=== PATIENT | male | born 1945 | race Caucasian/White ===

== ENCOUNTER → 2023-09-22 13:22 | Outpatient (CLI) | payer MEDICARE, SELFPAY | PROVIDERS: PCP Family Medicine; Visit Provider Specialist | DX: N47.1 Phimosis (principal); N48.1 Balanitis; N40.1 Benign prostatic hyperplasia with lower urinary tract symptoms; N13.8 Other obstructive and reflux uropathy; R39.9 Unspecified symptoms and signs involving the genitourinary system | CPT/HCPCS: 51798; 81002; 87077; 87086; 87147; 87186; 99214 ==

== ENCOUNTER 2023-11-09 07:51 | Day surgery (SDC) | payer MEDICARE, OTHER, SELFPAY ==
[2023-11-05 13:25] VITALS: BMI 34.7
--- NOTE | 2023-11-09 | PATH_ITS ---
[facility] Accession Number: [id number] No. of containers..01 Tissue . 01 Material submitted: . foreskin - FORESKIN . 01 Diagnosis: FORESKIN, BIOPSY: Foreskin with lichenoid inflammation and crusted erosion. [facility] 11/17/2023 1024 Local . 01 Comment: Although there is mild squamous atypia, these changes are favored to be reactive. . The histologic material was reviewed with Dr. Iglesia Patton, who concurs. . 01 Electronically signed: . Maia Erickson MD, Dermatopathologist NPI- [id number] . 01 Gross description: . The specimen is received in formalin, labeled with the patient's name, , and foreskin, and consists of an irregular, calle, wrinkled fragment of skin measuring 8.7 x 3.0 x 0.9 cm. There are several pale crusted areas measuring up to 1.3 cm in greatest dimension occupying approximately 10% of the cutaneous surface. The margin is inked blue, and sectioning reveals a calle, soft, unremarkable cut surface. Behavioral Health Assistant sections to include pale, crusted areas are submitted in cassettes A1-A3. ([id number]) /MRV 11/10/2023 1544 Local . 01 Pathologist provided ICD-10: R23.9 . 01 CPT . 858065 Specimen Comment: A courtesy copy of this report has been sent to [phone] Performed at: [address] [id number] MD Sami Roche MD Phone: [phone]
[2023-11-09] MEDS: LACTATED RINGERS 1,000 ML 21 ML IV ×2 (08:12→10:46)
[2023-11-09] MEDS: ACETAMINOPHEN IV 1,000 MG/100 ML VIAL 400 MG IV (08:29)
[2023-11-09 08:39] VITALS: BP 147/78; PULSE 62; RESP 16; TEMP 36.2; O2SAT 95; BMI 34.7
--- NOTE | 2023-11-09 09:18 | PM.PREOP ---
Pre-operative Note COVID-19 COVID-19 status: Not tested Interval Note History & Physical reviewed/Exam performed by Physician: Yes Changes to H&P: No
[2023-11-09] MEDS: CEFAZOLIN 2 GM/100 ML PREMIX 100 ML IV (09:39)
--- NOTE | 2023-11-09 09:56 | SUR.OPER ---
Supine on padded OR bed, head on pillow, arms secured on padded arm boards at <90 degrees abduction, legs uncrossed, safety belt at thigh, tape over blanket over lower legs.
[2023-11-09] MEDS: BUPIVACAINE 0.25% (PF) VIAL 30 ML INJ (10:00)
[2023-11-09] MEDS: BACITRACIN 28 GM OINT 1 APPLIC TOP (10:41)
[2023-11-09 11:13] VITALS: BP 151/87; PULSE 67; RESP 15; TEMP 37.3; O2SAT 92
[2023-11-09 11:18] VITALS: BP 144/80; PULSE 67; RESP 13; O2SAT 95
--- NOTE | 2023-11-09 11:18 | PM.OP.1 ---
Procedure & Clinicians Procedure: Circumcision and takedown of penile adhesions Same procedure as scheduled: Yes Indications: This is a 78-year-old male who presented with complaints of profound phimosis. He presents at this time for the above procedure. Surgeon: Alvarez Nicholas Click Yes if Unassisted: Yes Anesthesia Type: General Operative Notes Findings: Findings: Profound phimosis with some evidence of lichen sclerosis. Dense adhesions in the proximal glans and coronal sulcus. There was evidence of a whitish plaque-like lesion which could be balanitis xerotica obliterans or lichen sclerosis will await pathologic determination. The penile shaft anatomy was. The meatus and glans were otherwise normal Closure Type: primary Specimen(s): other (Foreskin) Prosthetic devices, grafts, tissues, transplants, or devices: None Estimated Blood Loss (mL): 25 Blood products transfused: none Procedure in detail: Procedure in detail: After informed consent was obtained, the patient was identified brought to the operating room where he was placed supine position on the table. Once their anesthesia was induced and maintained. The patient was then shaved, prepped, draped for circumcision. After prepping draping, ensuring an adequate level of anesthesia, administration of antibiotics and time-out the phimotic ring was open with a hemostat and dorsal slit performed. The inner preputial skin was then cleansed with Hibiclens. As the foreskin was reduced were retracted again Hibiclens wash was performed. At this point the adhesions, which were quite extensive and extended the operative time were taken down with blunt sharp dissection. Till the glans was completely released and the coronal sulcus developed. At the frenulum there was a white plaque-like lesion as noted this was divided sharply. The penile skin was then incised circumferentially just proximal to the coronal sulcus. The skin was then reduced her put back in position. And the shaft skin was marked for the line of incision which was incised circumferentially. The intervening sleeve of tissue was then removed with blunt sharp and electrocautery dissection. Points of bleeding were controlled with electrocautery. And skin edges reapproximated with interrupted 2-0 chromic gut. The incision was infiltrated with 0.25% plain Marcaine. Bacitracin Xeroform and Miguel were applied as a dressing. With this done the patient having tolerated the procedure well he was awakened to be transferred to the postanesthesia care unit for recovery. There were no complications. Was recovered the patient will be discharged to home to follow up my office in approximately 14 days. Complications: none Post-operative Condition: stable Disposition: PACU Plan for aftercare: Patient to be discharged to home to follow up my office in 14 days.
[2023-11-09 11:23] VITALS: BP 142/81; PULSE 65; RESP 12; O2SAT 93
[2023-11-09 11:28] VITALS: BP 146/91; PULSE 66; RESP 14; O2SAT 95
[2023-11-09] MEDS: OXYCODONE IR 5 MG TABLET PO (11:31)
== END 2023-11-09 12:00 | disposition home or self-care (01) ==
PROVIDERS: PCP Family Medicine; Referring Provider Urology; Visit Provider Urology
PROC: (CPT 54161; principal; 2023-11-09 09:15)
DX: N47.1 Phimosis (principal); N48.1 Balanitis; L28.0 Lichen simplex chronicus
CPT/HCPCS: 54161; 82962; J0136; J0690; J1100; J2405; J2704; J3010

== ENCOUNTER 2023-12-19 14:20 | Observation (INO) | payer MEDICARE, OTHER, SELFPAY ==
[2023-12-19] VITALS (11 sets, daily range): BP systolic 156–181; BP diastolic 72–125; PULSE 63–71; RESP 12–24; O2SAT 94–98; BMI 32.5
--- NOTE | 2023-12-19 15:27 | ED_ITS ---
HPI - Recheck/Abnormal Lab/Rx General Chief Complaint: Recheck/Abnormal Lab/Rx Stated Complaint: Left side weakness, speech slurring Time Seen by Provider: 12/19/23 15:14 Source: patient Mode of arrival: Ambulatory History of Present Illness HPI narrative: Patient is sent here by primary care with family, daughter and , for resolved left arm numbness and slurred speech. Patient denies any history of heart attack strokes or diabetes hyperlipidemia hypertension. No known family history of stroke. Patient states he went to bed Wednesday night without any complaints. He awoke yesterday morning, Wednesday morning at 7:00 a.m.. With his entire left arm from shoulder to fingers and thumb with tingling and numbness without weakness. noted that he had slightly slurred speech. However no facial droop no limb weakness. No headache. Patient states this lasted about 30 minutes. Never had any chest pain or palpitations. Has not had any further symptoms since yesterday morning at 7. Patient lives on [facility]. Fast exam is negative Related Data Home Medications Medication Instructions Recorded Confirmed No Known Home Medications 11/09/23 11/24/23 Allergies Allergy/AdvReac Type Severity Reaction Status Date / Time No Known Drug Allergies Allergy Verified 11/09/23 08:05 Review of Systems Review of Systems Narrative: GENERAL: negative chills, fatigue, malaise, fever, sweats. 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 EYES: Pupils equal round ENT: Mucous membranes moist. NECK: Trachea midline. CARDIOVASCULAR: Regular rate and rhythm RESPIRATORY: Clear to auscultation. Breath sounds equal bilaterally. No wheezes, rales, or rhonchi. GASTROINTESTINAL: Abdomen soft, non-tender EXTREMITIES: No gross deformities. BACK: No flank tenderness. NEURO: AOx4. Pycqsw-jl-gnoh and ujwr-cc-hlle intact bilaterally.Clear speech no facial droop. ?Light touch intact to bilateral face hands and feet. ?Strong equal truck shop supervisor bilaterally and ankle flexion hip flexion and knee flexion. ?Strong bilateral patellar reflexes. ?No pronator drift. ? SKIN: Warm and dry PSYCH: Not anxious, is cooperative Initial Vital Signs Initial Vital Signs: Vital Signs Pulse Rate 64 12/19/23 14:30 Respiratory Rate 18 12/19/23 14:30 Blood Pressure 156/76 H 12/19/23 14:30 Pulse Oximetry 98 12/19/23 14:30 Oxygen Delivery Method Room Air 12/19/23 14:30 Scores NIH Stroke Scale Level of Conciousness: Alert, keenly responsive Ask month/age: Answers both questions correctly. Open/close eyes, close hand: Performs both tasks correctly Best gaze horizontal: Normal Visual cruz: No visual loss Facial palsy: Normal symetrical movement Left arm drift: No drift for full 10 sec Right arm drift: No drift for full 10 sec Left leg drift: No drift for full 5 sec Right leg drift: No drift for full 5 sec Limb ataxia: Absent Sensory on face/arms/legs: Normal, no sensory loss Best language: No aphasia, normal Dysarthria: Normal Extinction or inattention: No abnormality Total NIH Stroke scale score: 0 Course Orders Ordered: Discontinued Medications Acetaminophen (Acetaminophen 325 Mg Tablet) 650 mg PO Q6H PRN PRN Reason: Fever/Mild Pain (1-3) Aspirin (Aspirin 81 Mg Chew Tab) 324 mg PO NOW ONE Stop: 12/19/23 16:52 Last Admin: 12/19/23 17:33 Dose: Not Given Documented By: CHAN Aspirin (Aspirin Ec 325 Mg Tablet) 325 mg PO NOW ONE Stop: 12/19/23 17:07 Last Admin: 12/19/23 18:10 Dose: Not Given Documented By: CHAN Aspirin (Aspirin Ec 81 Mg Tablet) 81 mg PO DAILY [facility] Aspirin (Aspirin 81 Mg Chew Tab) 324 mg PO NOW ONE Stop: 12/19/23 17:48 Last Admin: 12/19/23 17:56 Dose: 324 mg Documented By: SAMIRA Atorvastatin Calcium (Atorvastatin 20 Mg Tablet) 80 mg PO BEDTIME [facility] Clopidogrel Bisulfate (Clopidogrel 75 Mg Tablet) 300 mg PO NOW ONE Stop: 12/19/23 16:52 Last Admin: 12/19/23 17:34 Dose: Not Given Documented By: CHAN Clopidogrel Bisulfate (Clopidogrel 75 Mg Tablet) 300 mg PO NOW ONE Stop: 12/19/23 17:49 Last Admin: 12/19/23 17:56 Dose: 300 mg Documented By: SAMIRA Enoxaparin Sodium (Enoxaparin 40 Mg/0.4 Ml Syringe) 40 mg SUBCUT DAILY [facility] Sodium Chloride (Normal Saline 0.9%) 500 mls @ 1,000 mls/hr IV BOLUS ONE Stop: 12/19/23 15:54 Last Infusion: 12/19/23 17:34 Dose: Infused Documented By: Infusion: 12/19/23 16:38 Dose: 1,000 mls/hr Documented By: Infusion: 12/19/23 15:52 Dose: 0 mls/hr Documented By: Admin: 12/19/23 15:40 Dose: 1,000 mls/hr Documented By: SAMIRA Labetalol HCl (Labetalol 20 Mg/4 Ml Syringe) 10 mg IV Q10MIN PRN PRN Reason: SBP>= 180 or DBP >=110 Melatonin (Melatonin 3 Mg Tablet) 6 mg PO BEDTIME PRN PRN Reason: Insomnia Naloxone HCl (Naloxone 0.4 Mg/Ml Vial) 0.2 mg IV Q2MIN PRN PRN Reason: Opiate Reversal Polyethylene Glycol (Polyethylene Glycol 3350 17 Gm Powd.Pack) 17 gm PO DAILY PRN PRN Reason: Constipation Sennosides (Sennosides 8.6 Mg Tablet) 8.6 mg PO BID PRN PRN Reason: Constipation Vital Signs Vital signs: Vital Signs - 8 hr 12/19/23 14:30 12/19/23 16:35 12/19/23 16:37 Pulse Rate 64 68 Respiratory Rate 18 12 Blood Pressure 156/76 H 157/74 H Pulse Oximetry 98 94 Oxygen Delivery Method Room Air 12/19/23 16:37 Pulse Rate 65 Respiratory Rate 17 Blood Pressure Pulse Oximetry 96 Oxygen Delivery Method MDM - Recheck/Abnormal Lab/Rx Lab Data 12/19/23 15:08 12/19/23 15:08 Labs: Lab Results 12/19/23 Range/Units 15:08 WBC 6.1 (4.5-11.0) X10^3/uL RBC 4.05 L (4.5-5.9) X10^6/uL Hgb 13.0 L (13.5-17.5) g/dL Hct 38.5 L (41-53) % MCV 95.0 (80-100) fL MCH 32.2 (26-34) PG MCHC 33.9 (30-36) % RDW 12.8 (11.6-14.8) % Plt Count 171 (150-400) X10^3/uL Neut % (Auto) 49.5 L (50-75) % Lymph % (Auto) 29.2 (25-40) % Worth % (Auto) 9.6 (3-14) % Eos % (Auto) 11.2 H (2-4) % Baso % (Auto) 0.5 (0-2) % Neut # (Auto) 3000 (2070-2434) /uL Lymph # (Auto) 1800 (7055-0266) /uL Worth # (Auto) 600 (0-900) /uL Eos # (Auto) 700 H (0-450) /uL Baso # (Auto) 0 (0-100) /uL Sodium 142 (137-145) mmol/L Potassium 4.1 (3.4-5.1) mmol/L Chloride 108 H (98-107) mmol/L Carbon Dioxide 29 (22-32) mmol/L BUN 19 (9-20) mg/dL Creatinine 1.07 (0.66-1.25) mg/dL Estimated GFR > 60 (>60) mL/min BUN/Creatinine Ratio 17.8 (6-22) Glucose 89 (80-110) mg/dL Hemoglobin A1c 5.7 (4.0-6.0) % Calcium 9.1 (8.4-10.2) mg/dL Magnesium 2.1 (1.6-2.3) mg/dL Total Bilirubin 0.5 (0.2-1.3) mg/dL AST 23 (17-59) IU/L ALT 19 (<50) IU/L Alkaline Phosphatase 68 (38-126) U/L Total Creatine Kinase 108 (55-170) U/L Troponin I < 0.012 (0.01-0.034) ng/mL Total Protein 7.7 (6.3-8.2) g/dL Albumin 4.6 (3.5-5.0) g/dL Globulin 3.1 (1.7-4.1) g/dL Albumin/Globulin Ratio 1.5 (1.0-2.8) Triglycerides 205 H (35-150) mg/dL Cholesterol 198 (140-199) mg/dL LDL Cholesterol, Calc 114 H (<100) mg/dL HDL Cholesterol 43 (40-60) mg/dL TSH 1.16 (0.47-4.68) uIU/mL Imaging Data MRI brain: Radiologist's Impression: [address] [address] Magnetic Resonance Report Signed Patient: Viral Stout MR#: [id number] : 1945 Acct:[id number] Age/Sex: 78 / M Date of Service: 12/19/23 Loc: ED Accession Number: [id number] Procedure: MR head/brain wo con Ordering Provider: Alvarez Bush MD PROCEDURE: MR HEAD/BRAIN WO CON INDICATIONS: Slurred speech TECHNIQUE: Noncontrast axial T1 spin echo, axial T2 fast spin echo, sagittal and axial FLAIR, coronal T2 fast spin echo, axial gradient echo, axial diffusion and ADC through the brain. COMPARISON: , CT, CT HEAD/BRAIN WO CON, 12/19/2023, 15:56. FINDINGS: Image quality: Excellent. CSF Spaces: Basal cisterns are patent. No extra-axial fluid collections. Ventricles are normal in size and shape. Brain: Scattered foci of restricted diffusion throughout the right temporal and parietal lobes and to a lesser extent within the frontal parietal region near the vertex of the skull. These areas have matching corresponding to chest/FLAIR hyperintensity and are mostly peripherally located near the cortex/mendez-white matter junction. These areas are small and mostly punctate with the largest within the right frontal region measuring 7 mm. No intracranial masses or hemorrhage. The large hypointense area within the right parietal simple area as seen on comparison CT is chronic and does not have associated restricted diffusion. Brainstem appears normal. Normal intravascular flow voids are present. Skull and face: Calvarium has normal marrow signal. Orbits appear normal. Sinuses: Sinuses and mastoids are clear. IMPRESSION: Numerous small foci of restricted diffusion throughout the right hemisphere in multiple vascular regions consistent embolic etiologies. Dr. Irving discussed the above findings with the ordering provider at the time of dictation. Dictated by: Alvarez Irving M.D. on 12/19/2023 at 15:39 Approved by: Alvarez Irving M.D. on 12/19/2023 at 15:48 CT scan - head: Radiologist's Impression: [address] [address] [address] Scan Report Signed Patient: Viral Stout MR#: [id number] : 1945 Acct:[id number] Age/Sex: 78 / M Date of Service: 12/19/23 Loc: ED Accession Number: [id number] Procedure: CT head/brain wo con Ordering Provider: Alvarez Bush MD PROCEDURE: CT HEAD/BRAIN WO CON INDICATIONS: slurred speech TECHNIQUE: Noncontrast 4.5 mm thick angled axial sections acquired from the foramen magnum to the vertex, with coronal and sagittal reformats. For radiation dose reduction, the following was used: automated exposure control, adjustment of mA and/or kV according to patient size. COMPARISON: , CT, CT ANGIO HEAD AND NECK, 12/19/2023, 15:56. FINDINGS: Image quality: Diagnostic. CSF spaces: Basal cisterns are patent. No extra-axial fluid collections. Ventricles are normal in size and shape. Brain: Hypodensity within the right parietal lobe is likely chronic. Diffuse parenchymal volume loss. A few small lacunar infarcts in periventricular white matter hypodensities suggestive of chronic microvascular ischemic disease. No midline shift. No intracranial masses or hemorrhage. Mendez-white matter interface is normal. Skull and face: Calvarium and visualized facial bones are intact, without suspicious lesions. Sinuses: Visualized sinuses and mastoids are clear. IMPRESSION: 1. No intracranial hemorrhage. 2. Hypodensity within the right parietal lobe is favored to represent encephalomalacia and chronic stroke however acute ischemia can be ruled out by MRI if clinically warranted. 3. Additional sequela of chronic microvascular ischemic disease. Dictated by: Alvarez Irving M.D. on 12/19/2023 at 15:16 Approved by: Alvarez Irving M.D. on 12/19/2023 at 15:20 CTA - brain/neck: Radiologist's Impression: [address] [address] [address] Scan Report Signed Patient: Viral Stout MR#: [id number] : 1945 Acct:[id number] Age/Sex: 78 / M Date of Service: 12/19/23 Loc: ED Accession Number: [id number] Procedure: CT angio head and neck Ordering Provider: Alvarez Bush MD PROCEDURE: CT ANGIO HEAD AND NECK INDICATIONS: slurred speech TECHNIQUE: After the administration of intravenous contrast, 1 mm thick sections acquired from the aortic arch through the [place]. 3-dimensional sszwbeo-dkhdnebsu-cquisdhwjy (MIP) and/or volume rendering reformats were acquired of the central intracranial vasculature and neck separately. For radiation dose reduction, the following was used: automated exposure control, adjustment of mA and/or kV according to patient size. COMPARISON: None. FINDINGS: Image quality: Diagnostic. BRAIN: CSF spaces: Ventricles are normal in size and shape. Basal cisterns are patent. No extra-axial fluid collections. Brain: No significant abnormality of the brain can be seen. Skull and face: Calvarium and facial bones appear intact, without suspicious lesions. Orbits appear normal. Sinuses: Sinuses and mastoids are clear. HEAD CT ANGIOGRAPHY: Anterior circulation: Intracranial internal carotid arteries are normal in size and flow. The flow within the paired anterior cerebral arteries is normal and symmetric. The flow within the middle cerebral arteries is normal and symmetric. The anterior communicating artery is seen. No aneurysms are seen. Posterior circulation: Visualized portions of the vertebral arteries demonstrate normal caliber, and join to form a normal appearing basilar artery. Persistent origin of the left [employer]BASS[employer]OR. No aneurysms are seen. NECK CT ANGIOGRAPHY: Carotid system: The great vessels demonstrate a conventional anatomy as they arise from the aortic arch. The origins of the common carotid arteries appear patent. The common carotid arteries demonstrate normal caliber and courses. T calcific atherosclerotic disease the takeoff of the bilateral internal carotid arteries. At the takeoff of the right internal carotid artery calcification results in approximately 50% stenosis of the left internal carotid artery. The internal carotid arteries demonstrate normal calibers and courses. Posterior circulation: The origins of the vertebral arteries both appear widely patent. The more superior extracranial portions of both vertebral arteries also demonstrate normal courses and calibers. They join to form a normal appearing basilar artery. Soft tissues: Visualized neck soft tissues demonstrate no suspicious abnormalities. Bones: No suspicious bony lesions. Visualized cervical spine appears normally aligned. IMPRESSION: No significant intracranial arterial abnormality is seen. 50% stenosis at the takeoff of the right ICA. Any quantitative measurements of stenosis were performed using NASCET criteria. Dictated by: Alvarez Irving M.D. on 12/19/2023 at 15:20 Approved by: Alvarez Irving M.D. on 12/19/2023 at 15:26 [facility] Narrative Medical decision making narrative: Patient is sent here by primary care with family, daughter and , for resolved left arm numbness and slurred speech. Patient denies any history of heart attack strokes or diabetes hyperlipidemia hypertension. No known family history of stroke. Patient states he went to bed Wednesday night without any complaints. He awoke yesterday morning, Wednesday morning at 7:00 a.m.. With his entire left arm from shoulder to fingers and thumb with tingling and numbness without weakness. noted that he had slightly slurred speech. However no facial droop no limb weakness. No headache. Patient states this lasted about 30 minutes. Never had any chest pain or palpitations. Has not had any further symptoms since yesterday morning at 7. Patient lives on [facility]. Fast exam is negative After history and exam MRI brain CT head CT angiogram head and neck normal saline EKG CBC CMP troponin [facility] Medical records reviewed: No recent visit for this complaint Differential considered: Includes but not limited to TIA stroke peripheral neuropathy Lab Test results independently reviewed as above. Pertinent findings: Troponin less than 0.012 Independently reviewed EKG normal sinus rhythm normal EKG rate [address] elevation or depression Imaging studies independently reviewed: CT head CT angiogram head and neck no acute finding MRI brain numerous small foci of restricted diffusion throughout the right hemisphere consistent with embolic etiologies Consultations: 4:[address] Herndon, hospitalist, who will admit patient. Hold on aspirin and Plavix at this time. He would like to talk to Neurology 1st. Films will be pushed to tele stroke now. 6:[address] Herndon has seen patient at bedside. He is spoken with Dr. Hardin, tele stroke Neurology with [facility]. They would like patient at their facility [facility] Emergency Department. She will be the accepting provider. Treatments: Normal saline Re-evaluations: 4:50 p.m.. Spoke with patient and family. He remains asymptomatic. Updated him MRI results does show a stroke. They do agree for admission. Discussion: Appropriate for admission for balance workup for his stroke. No tPA or endovascular procedures indicated this time greater than 24 hours onset, was 7:00 a.m. yesterday was onset. No large vessel occlusion. Diagnosis: Acute stroke Discharge Plan Departure Patient Disposition: [facility] Clinical Impression: Acute stroke due to ischemia
[2023-12-19 15:37] LABS: Add Manual Diff / Slide Review NO; Basophils Absolute Auto 0 /uL (0-100); Basophils Percent Auto 0.5 % (0-2); Eosinophils Absolute Auto 700 /uL (0-450); Eosinophils Percent Auto 11.2 % (2-4); Hematocrit 38.5 % (41-53); Lymphocytes Absolute Auto 1800 /uL (1100-4500); Lymphocytes Percent Auto 29.2 % (25-40); Mean Corpuscular HGB Conc 33.9 % (30-36); Mean Corpuscular Hemoglobin 32.2 PG (26-34); Monocytes Absolute Auto 600 /uL (0-900); Monocytes Percent Auto 9.6 % (3-14); Neutrophils Absolute Auto 3000 /uL (1500-7000); Neutrophils Percent Auto 49.5 % (50-75); Platelet Count 171 X10^3/uL (150-400); Red Blood Cell Count 4.05 X10^6/uL (4.5-5.9); Red Cell Distribution Width 12.8 % (11.6-14.8); White Blood Cell Count 6.1 X10^3/uL (4.5-11.0)
[2023-12-19] MEDS: SODIUM CHLORIDE 0.9% 500 ML 1000 ML IV (15:40)
[2023-12-19 15:43] LABS: Alanine Aminotransferase 19 IU/L (<50); Albumin 4.6 g/dL (3.5-5.0); Albumin Globulin Ratio 1.5 (1.0-2.8); Alkaline Phosphatase 68 U/L (38-126); Aspartate Aminotransferase 23 IU/L (17-59); BUN Creatinine Ratio 17.8 (6-22); Bilirubin Total 0.5 mg/dL (0.2-1.3); Blood Urea Nitrogen 19 mg/dL (9-20); Calcium 9.1 mg/dL (8.4-10.2); Carbon Dioxide 29 mmol/L (22-32); Chloride 108 mmol/L (98-107); Creatine Kinase 108 U/L (55-170); Estimated Glomerular Filt Rate > 60 mL/min (>60); Globulin 3.1 g/dL (1.7-4.1); Glucose 89 mg/dL (80-110); HEMOLYSIS < 15 (0-50); Potassium 4.1 mmol/L (3.4-5.1); Sodium 142 mmol/L (137-145); Total Protein 7.7 g/dL (6.3-8.2)
[2023-12-19 15:55] LABS: Troponin I < 0.012 ng/mL (0.01-0.034)
--- NOTE | 2023-12-19 17:12 | PM.HP.1 ---
History of Present Illness History of Present Illness Date Patient Seen: 12/19/23 Chief complaint: Left side weakness, speech slurring Narrative: Viral Stout is a 78-year-old male with past medical history of BPH who presents with acute stroke. FOR[facility]LY [facility] Medical History Adhesions of prepuce and glans penis BPH w urinary obs/LUTS Balanitis Hearing decreased Scoliosis Measles (~1950) Chicken pox Tinnitus (~2015) Surgical History Anesthesia History of hip replacement History of removal of skin mole Family History Sister Cancer Social History household members: spouse Smoking Status: Former smoker alcohol intake: current Meds Home Medications and Allergies Home Medications Medication Instructions Recorded Confirmed Type No Known Home Medications 11/09/23 11/24/23 History Allergies Allergy/AdvReac Type Severity Reaction Status Date / Time No Known Drug Allergies Allergy Verified 11/09/23 08:05 Review of Systems Review of Systems Narrative: All other systems reviewed with the patient and are negative unless otherwise stated. Exam Vital Signs (past 8 hours): - 12/19/23 14:30 Pulse Rate 64 Respiratory Rate 18 Blood Pressure 156/76 H Pulse Oximetry 98 Oxygen Delivery Method Room Air Oxygen Delivery Method Room Air Narrative Exam Narrative: GEN: no acute distress HEENT: moist mucous membranes, PERRL NECK: trachea midline, no JVD CV: regular rate and rhythm, no murmurs PULM: clear bilaterally ABD: soft, nontender, nondistended, no organomegaly EXT: warm and well perfused with no edema NEURO: awake, alert, oriented, no focal deficits Objective Labs 12/19/23 15:08 12/19/23 15:08 Labs: Laboratory Results - last 24 hr 12/19/23 15:08 WBC 6.1 RBC 4.05 L Hgb 13.0 L Hct 38.5 L MCV 95.0 MCH 32.2 MCHC 33.9 RDW 12.8 Plt Count 171 Neut % (Auto) 49.5 L Lymph % (Auto) 29.2 Fountain % (Auto) 9.6 Eos % (Auto) 11.2 H Baso % (Auto) 0.5 Neut # (Auto) 3000 Lymph # (Auto) 1800 Fountain # (Auto) 600 Eos # (Auto) 700 H Baso # (Auto) 0 Sodium 142 Potassium 4.1 Chloride 108 H Carbon Dioxide 29 BUN 19 Creatinine 1.07 Estimated GFR > 60 BUN/Creatinine Ratio 17.8 Glucose 89 Calcium 9.1 Total Bilirubin 0.5 AST 23 ALT 19 Alkaline Phosphatase 68 Total Creatine Kinase 108 Troponin I < 0.012 Total Protein 7.7 Albumin 4.6 Globulin 3.1 Albumin/Globulin Ratio 1.5 Assessment & Plan Assessment & Plan narrative: # acute right hemisphere stroke -MRI with numerous small strokes throughout right hemisphere, suggesting embolic source -spoke with tele neuro who recommended loading with aspirin and continuing aspirin 81 mg daily -CTA with 50% right carotid artery stenosis -check lipids and A1c -obtain echo -permissive hypertension for 24 hours -PT and OT evals -tele # BPH -sees Dr. [facility] -not currently on any medications Code status is full code. DVT prophylaxis with Lovenox. Proxy is Arianne. I have reviewed home meds and used all available resources to reconcile the home meds. Case discussed with ED physician/APC and patient will be admitted to the hospitalist service for further workup and management. This patient will be admitted as inpatient and will require greater than 2 midnights of hospital time to treat stroke.
[2023-12-19 17:26] LABS: Cholesterol 198 mg/dL (140-199); HDL Cholesterol 43 mg/dL (40-60); LDL Cholesterol Calculated 114 mg/dL (<100); Magnesium 2.1 mg/dL (1.6-2.3); Triglycerides 205 mg/dL (35-150)
[2023-12-19 17:27] LABS: Hemoglobin A1C% w Est Avg Glu 5.7 % (4.0-6.0)
[2023-12-19] MEDS: ASPIRIN 81 MG CHEW TAB 324 MG PO (17:56)
[2023-12-19] MEDS: CLOPIDOGREL 75 MG TABLET 300 MG PO (17:56)
[2023-12-19 17:58] LABS: TSH w/ Reflex to FT4 1.16 uIU/mL (0.47-4.68)
--- NOTE | 2023-12-19 17:58 | PC.NURSE ---
Pt reports to this RN that I was fibbing and he did not take 4 baby aspirin today. Yanick made aware. Pt medicated per OCT.
--- NOTE | 2023-12-19 18:22 | PM.CN ---
History of Present Illness Consult details Date Patient Seen: 12/19/23 Chief complaint: Left side weakness, speech slurring Narrative: Viral Stout is a 78-year-old male with past medical history of phimosis, BPH and occasional cigar use who presents with acute stroke. Patient notes he developed numbness, tingling and weakness of his left arm as well as slurred speech at approx 7am on 12/17. He thought he had slept on his arm so brushed things off. These symptoms lasted 30 minutes then fully resolved. He finally came into the ED at the behest of his . He takes no medications other than occasional benadryl for seasonal allergies. He smokes an occasional cigar. No alcohol use. Last month he had a circumcision due to acute phimosis and is recovering well. He currently denies CP, SOB, NV, abd pain, diarrhea, or weakness in arms or legs. In the ED, his CTA head/neck showed 50% narrowing of R ICA. 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 MRI showed numerous small strokes of the R hemisphere consistent with stroke of embolic source. Meds Home Medications and Allergies Home Medications Medication Instructions Recorded Confirmed Type No Known Home Medications 11/09/23 11/24/23 History Allergies Allergy/AdvReac Type Severity Reaction Status Date / Time No Known Drug Allergies Allergy Verified 11/09/23 08:05 Review of Systems Review of Systems Narrative: All other systems reviewed with the patient and are negative unless otherwise stated. Exam Vital Signs (past 8 hours): - 12/19/23 14:30 12/19/23 16:35 12/19/23 16:37 Pulse Rate 64 68 Respiratory Rate 18 12 Blood Pressure 156/76 H 157/74 H Pulse Oximetry 98 94 Oxygen Delivery Method Room Air 12/19/23 16:37 12/19/23 17:00 12/19/23 17:00 Pulse Rate 65 65 Respiratory Rate 17 16 Blood Pressure 171/81 H Pulse Oximetry 96 96 Oxygen Delivery Method 12/19/23 17:30 12/19/23 17:30 12/19/23 18:00 Pulse Rate 65 Respiratory Rate 18 Blood Pressure 181/82 H 162/125 H Pulse Oximetry 96 Oxygen Delivery Method 12/19/23 18:00 12/19/23 18:09 12/19/23 18:09 Pulse Rate 71 68 Respiratory Rate 19 24 Blood Pressure 171/88 H Pulse Oximetry 97 97 Oxygen Delivery Method Oxygen Delivery Method Room Air Narrative Exam Narrative: GEN: no acute distress HEENT: moist mucous membranes, PERRL NECK: trachea midline, no JVD CV: regular rate and rhythm, no murmurs PULM: clear bilaterally ABD: soft, nontender, nondistended, no organomegaly EXT: warm and well perfused with no edema NEURO: awake, alert, oriented, no focal deficits Objective Labs 12/19/23 15:08 12/19/23 15:08 Labs: Laboratory Results - last 24 hr 12/19/23 15:08 WBC 6.1 RBC 4.05 L Hgb 13.0 L Hct 38.5 L MCV 95.0 MCH 32.2 MCHC 33.9 RDW 12.8 Plt Count 171 Neut % (Auto) 49.5 L Lymph % (Auto) 29.2 Dolores % (Auto) 9.6 Eos % (Auto) 11.2 H Baso % (Auto) 0.5 Neut # (Auto) 3000 Lymph # (Auto) 1800 Dolores # (Auto) 600 Eos # (Auto) 700 H Baso # (Auto) 0 Sodium 142 Potassium 4.1 Chloride 108 H Carbon Dioxide 29 BUN 19 Creatinine 1.07 Estimated GFR > 60 BUN/Creatinine Ratio 17.8 Glucose 89 Hemoglobin A1c 5.7 Calcium 9.1 Magnesium 2.1 Total Bilirubin 0.5 AST 23 ALT 19 Alkaline Phosphatase 68 Total Creatine Kinase 108 Troponin I < 0.012 Total Protein 7.7 Albumin 4.6 Globulin 3.1 Albumin/Globulin Ratio 1.5 Triglycerides 205 H Cholesterol 198 LDL Cholesterol, Calc 114 H HDL Cholesterol 43 TSH 1.16 PFSH Medical History Adhesions of prepuce and glans penis BPH w urinary obs/LUTS Balanitis Hearing decreased Scoliosis Measles (~1950) Chicken pox Tinnitus (~2014) Surgical History Anesthesia History of hip replacement History of removal of skin mole Family History Sister Cancer Social History household members: spouse Tobacco & Substance Use Smoking Status: Former smoker alcohol intake: current Assessment & Plan Assessment & Plan narrative: # acute right hemisphere stroke -MRI with numerous small strokes throughout right hemisphere, suggesting embolic source -CTA with 50-70% right carotid artery stenosis -spoke with tele neuro who recommended loading with aspirin and plavix, then transferring for possible revascularization -ED to transfer to [facility] ED, patient amenable # phimosis s/p reduction -underwent circumcision with Dr. Nicholas [facility] on 11/09/23 Thank you for the medicine consult. Patient will be transferred to under accepting neurologist Dr. Layla Hardin.
== END 2023-12-20 03:38 | disposition other institution (70) ==
LOC: ED 15:14 → AC 16:53 → ICU 18:01 → AC 18:18
PROVIDERS: Admitting Provider Student in an Organized Health Care Education/Training Program; Emergency Provider Emergency Medicine; PCP Family Medicine; Referring Provider Emergency Medicine; Visit Provider Student in an Organized Health Care Education/Training Program
DX: I63.89 Other cerebral infarction (principal); I65.21 Occlusion and stenosis of right carotid artery; R29.700 NIHSS score 0; Z86.73 Personal history of transient ischemic attack (TIA), and cerebral infarction without residual deficits
CPT/HCPCS: 36415; 70450; 70496; 70498; 70551; 80053; 80061; 82550; 83036; 83735; 84443; 84484; 85025; 93005; 96360; 99285; G0378; Q9967

== ENCOUNTER → 2024-02-04 09:48 | Outpatient (CLI) | payer MEDICARE, OTHER, SELFPAY ==
[2024-02-04 18:14] LABS: Add Manual Diff / Slide Review NO; Basophils Absolute Auto 0 /uL (0-100); Basophils Percent Auto 0.6 % (0-2); Eosinophils Absolute Auto 800 /uL (0-450); Eosinophils Percent Auto 13.9 % (2-4); Hematocrit 38.1 % (41-53); Hemoglobin 12.9 g/dL (13.5-17.5); Lymphocytes Absolute Auto 1600 /uL (1100-4500); Lymphocytes Percent Auto 25.7 % (25-40); Mean Corpuscular HGB Conc 33.9 % (30-36); Mean Corpuscular Hemoglobin 31.8 PG (26-34); Mean Corpuscular Volume 94.1 fL (80-100); Monocytes Absolute Auto 600 /uL (0-900); Monocytes Percent Auto 9.8 % (3-14); Neutrophils Absolute Auto 3000 /uL (1500-7000); Platelet Count 156 X10^3/uL (150-400); Red Blood Cell Count 4.05 X10^6/uL (4.5-5.9); Red Cell Distribution Width 12.9 % (11.6-14.8)
[2024-02-04 18:31] LABS: HEMOLYSIS < 15 (0-50); Iron 121 ug/dL (49-181)
[2024-02-04 18:37] LABS: BUN Creatinine Ratio 17.5 (6-22); Blood Urea Nitrogen 18 mg/dL (9-20); Carbon Dioxide 24 mmol/L (22-32); Chloride 110 mmol/L (98-107); Cholesterol 129 mg/dL (140-199); Estimated Glomerular Filt Rate > 60 mL/min (>60); Glucose 100 mg/dL (80-110); HDL Cholesterol 42 mg/dL (40-60); HEMOLYSIS < 15 (0-50); LDL Cholesterol Calculated 63 mg/dL (<100); Potassium 4.3 mmol/L (3.4-5.1); Sodium 141 mmol/L (137-145); Triglycerides 118 mg/dL (35-150)
[2024-02-04 18:42] LABS: Percent Iron Saturation 40 % (20-50); Total Iron Binding Capacity 305 ug/dL (261-462); Transferrin 219 mg/dL (206-381)
[2024-02-04 19:27] LABS: Vitamin B12 239 pg/mL (239-931)
== END ==
PROVIDERS: PCP Family Medicine; Referring Provider Family Medicine; Visit Provider Family Medicine
DX: E78.2 Mixed hyperlipidemia (principal); Z86.73 Personal history of transient ischemic attack (TIA), and cerebral infarction without residual deficits; D64.9 Anemia, unspecified; Z98.890 Other specified postprocedural states
CPT/HCPCS: 80048; 80061; 82607; 83540; 83550; 85025

== ENCOUNTER → 2025-02-14 10:02 | Outpatient (CLI) | payer MEDICARE, OTHER, SELFPAY ==
[2025-02-14 19:56] LABS: Reticulocyte Count, Percent 0.8 % (0.9-2.6)
[2025-02-14 19:57] LABS: Add Manual Diff / Slide Review NO; Basophils Absolute Auto 0 /uL (0-100); Basophils Percent Auto 0.5 % (0-2); Eosinophils Absolute Auto 600 /uL (0-450); Eosinophils Percent Auto 9.9 % (2-4); Hematocrit 43.2 % (41-53); Hemoglobin 14.4 g/dL (13.5-17.5); Lymphocytes Absolute Auto 1300 /uL (1100-4500); Lymphocytes Percent Auto 24.1 % (25-40); Mean Corpuscular HGB Conc 33.5 % (30-36); Mean Corpuscular Hemoglobin 32.2 PG (26-34); Mean Corpuscular Volume 96.3 fL (80-100); Monocytes Absolute Auto 500 /uL (0-900); Monocytes Percent Auto 9.5 % (3-14); Neutrophils Absolute Auto 3100 /uL (1500-7000); Platelet Count 123 X10^3/uL (150-400); Red Blood Cell Count 4.48 X10^6/uL (4.5-5.9); Red Cell Distribution Width 13.4 % (11.6-14.8); White Blood Cell Count 5.5 X10^3/uL (4.5-11.0)
[2025-02-14 20:11] LABS: Hemoglobin A1C% w Est Avg Glu 5.5 % (4.0-6.0)
[2025-02-14 20:16] LABS: BUN Creatinine Ratio 21.5 (6-22); Blood Urea Nitrogen 23 mg/dL (9-20); Calcium 9.3 mg/dL (8.4-10.2); Carbon Dioxide 25 mmol/L (22-32); Chloride 104 mmol/L (98-107); Cholesterol 135 mg/dL (140-199); Estimated Glomerular Filt Rate > 60 mL/min (>60); Glucose 106 mg/dL (70-99); HDL Cholesterol 52 mg/dL (40-60); HEMOLYSIS < 15 (0-50); LDL Cholesterol Calculated 67 mg/dL (<100); Potassium 4.3 mmol/L (3.4-5.1); Sodium 139 mmol/L (137-145); Triglycerides 79 mg/dL (35-150)
[2025-02-14 20:32] LABS: Creatinine Urine Random 85.21 mg/dL
[2025-02-14 20:37] LABS: Microalbumin Urine Random 0.8 mg/dL (0-1.6)
[2025-02-14 20:44] LABS: TSH w/ Reflex to FT4 2.35 uIU/mL (0.47-4.68)
== END ==
PROVIDERS: PCP Family Medicine; Visit Provider Family Medicine
DX: D64.9 Anemia, unspecified (principal); E11.9 Type 2 diabetes mellitus without complications; Z98.890 Other specified postprocedural states; E78.2 Mixed hyperlipidemia; Z86.73 Personal history of transient ischemic attack (TIA), and cerebral infarction without residual deficits
CPT/HCPCS: 80048; 80061; 82043; 82570; 83036; 84443; 85025; 85045